=== PATIENT | female | born 1990 | race Caucasian/White ===

== ENCOUNTER 2018-06-28 06:11 | Emergency (ER) | payer SELFPAY ==
[2018-06-28] MEDS ORDERED: KETOROLAC 30 MG/ML INJ ONE (06:58)
--- NOTE | 2018-06-28 07:09 | EDPHYS ---
Physician Documentation [facility] Name: Yazmin Nieto Age: 27 yrs Sex: Female : 1990 Arrival Date: 06/28/2018 Time: 06:12 Bed 16 Private MD: ED Physician Dev Romo HPI: 06/28 06:41 This 27 yrs old Female presents to ER via Ambulatory with complaints of Back jr8 Pain. 06:41 The patient presents with pain that is acute. The symptoms are located in the left mid jr8 back. Onset: The symptoms/episode began/occurred acutely, today. The pain does not radiate. Associated signs and symptoms: The patient has no apparent associated signs or symptoms. The problem was sustained when bending over. Modifying factors: The patient symptoms are alleviated by remaining still, specific position, the patient symptoms are aggravated by any movement, bending, deep breath. Severity of symptoms: At their worst the symptoms were moderate, in the emergency department the symptoms are unchanged. The patient has not experienced similar symptoms in the past. The patient has not recently seen a physician. Stated that she carries a 45 pound back pack for work every day. Stated that she bent over to put her boots on yesterday and felt a pain in the mid back. Since then cannot get the pain to go away. 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 - Social history:: Smoking status: Patient/guardian denies using tobacco. - Ebola Screening: : Patient negative for fever greater than or equal to 101.5 degrees Fahrenheit, and additional compatible Ebola Virus Disease symptoms. ROS: 06:41 Eyes: Negative for injury, pain, redness, and discharge, ENT: Negative for injury, jr8 pain, and discharge, Neck: Negative for injury, pain, and swelling, Cardiovascular: Negative for chest pain, palpitations, and edema, Respiratory: Negative for shortness of breath, cough, wheezing, and pleuritic chest pain, Abdomen/GI: Negative for abdominal pain, nausea, vomiting, diarrhea, and constipation, MS/Extremity: Negative for injury and deformity, Skin: Negative for injury, rash, and discoloration, Neuro: Negative for headache, weakness, numbness, tingling, and seizure. 06:41 Back: Positive for pain at rest, pain with movement, Negative for radiated pain. Exam: 06:41 Eyes: Pupils equal round and reactive to light, extra-ocular motions intact. Lids and jr8 lashes normal. Conjunctiva and sclera are non-icteric and not injected. Cornea within normal limits. Periorbital areas with no swelling, redness, or edema. ENT: Nares patent. No nasal discharge, no septal abnormalities noted. Tympanic membranes are normal and external auditory canals are clear. Oropharynx with no redness, swelling, or masses, exudates, or evidence of obstruction, uvula midline. Mucous membranes moist. Neck: Trachea midline, no thyromegaly or masses palpated, and no cervical lymphadenopathy. Supple, full range of motion without nuchal rigidity, or vertebral point tenderness. No Meningismus. Cardiovascular: Regular rate and rhythm with a normal S1 and S2. No gallops, murmurs, or rubs. Normal PMI, no JVD. No pulse deficits. Respiratory: Lungs have equal breath sounds bilaterally, clear to auscultation and percussion. No rales, rhonchi or wheezes noted. No increased work of breathing, no retractions or nasal flaring. Abdomen/GI: Soft, non-tender, with normal bowel sounds. No distension or tympany. No guarding or rebound. No evidence of tenderness throughout. Skin: Warm, dry with normal turgor. Normal color with no rashes, no lesions, and no evidence of cellulitis. MS/ Extremity: Pulses equal, no cyanosis. Neurovascular intact. Full, normal range of motion. Neuro: Awake and alert, GCS 15, oriented to person, place, time, and situation. Cranial nerves II-XII grossly intact. Motor strength 5/5 in all extremities. Sensory grossly intact. Cerebellar exam normal. Normal gait. 06:41 Back: pain, that is mild, of the left mid back, ROM is painful, normal spinal alignment noted, CVA tenderness, is absent. Vital Signs: 06:23 BP 121 / 76; Pulse 88; Resp 18 S; Temp 98.6(O); Pulse Ox 98% on R/A; Weight 122.47 kg jd3 (R); Height 6 ft. 1 in. (185.42 cm) (R); Pain 10/10; 07:12 Pain 3/10; ls4 06:23 Body Mass Index 35.62 (122.47 kg, 185.42 cm) jd3 MDM: 06:14 Patient medically screened. jr8 06:41 Data reviewed: vital signs, nurses notes, lab test result(s), and as a result, I will jr8 discharge patient. Data interpreted: Pulse oximetry: on room air is 98 %. Interpretation: normal. Counseling: I had a detailed discussion with the patient and/or guardian regarding: the historical points, exam findings, and any diagnostic results supporting the discharge/admit diagnosis, lab results, the need for outpatient follow up, a family practitioner, to return to the emergency department if symptoms worsen or persist or if there are any questions or concerns that arise at home. ED course: Discussed with patient that she should have no heavy lifting for 1 week. Rest, heat, and will give medicine to relax the muscles. To follow up with PCP. Patient good with this plan . 06/28 06:50 Order name: Urine Dipstick--Ancillary (enter results) ar5 06/28 06:41 Order name: Urine Test (obtain specimen); Complete Time: 06:56 jr8 06/28 06:41 Order name: Urine Dipstick-Ancillary (obtain specimen); Complete Time: 06:57 jr8 Administered Medications: 06:57 Drug: TORadol 60 mg Route: IM; Site: right gluteus; jb4 07:12 Follow up: Pain 3/10 Adult; Response: No adverse reaction; Pain is decreased ls4 Disposition: 15:27 Co-signature as Attending Physician, Dev Romo MD I agree with the assessment and moody plan of care. Disposition: 06/28/18 07:08 Discharged to Home. Impression: Muscle spasm of back. - Condition is Stable. - Discharge Instructions: Muscle Cramps and Spasms, Back Exercises, Cmbm-of-Uhbk, Heat Therapy. - Prescriptions for tizanidine 4 mg Oral tablet - take 1 tablet by ORAL route every 6 hours as needed not to exceed 3 doses in 24 hours; 20 tablet. Ibuprofen 800 mg Oral Tablet - take 1 tablet by ORAL route every 12 hours As needed take with food; 20 tablet. - Work release form, Medication Reconciliation Form, Thank You Letter, Antibiotic Education, Prescription Opioid Use form. - Follow up: Private Physician; When: 1 week; Reason: Recheck today's complaints, Continuance of care, Re-evaluation by your physician. - Problem is new. - Symptoms have improved. 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 Impression: Muscle spasm of back. Condition ls4 is Stable. Discharge Instructions: Muscle Cramps and Spasms, Back Exercises, [id number], Heat Therapy. Prescriptions for tizanidine 4 mg Oral tablet - take 1 tablet by ORAL route every 6 hours as needed not to exceed 3 doses in 24 hours; 20 tablet, Ibuprofen 800 mg Oral Tablet - take 1 tablet by ORAL route every 12 hours As needed take with food; 20 tablet. and Forms are Medication Reconciliation Form, Thank You Letter, Antibiotic Education, Prescription Opioid Use. Follow up: Private Physician; When: 1 week; Reason: Recheck today's complaints, Continuance of care, Re-evaluation by your physician. Problem is new. Symptoms have improved. jr8
--- NOTE | 2018-06-28 07:09 | ER ---
Nurse's Notes [facility] Name: Yazmin Nieto Age: 27 yrs Sex: Female : 1990 Arrival Date: 06/28/2018 Time: 06:12 Bed 16 Private MD: Diagnosis: Muscle spasm of back Presentation: 06/28 06:19 Presenting complaint: Patient states: "I am having lower back pain that started jd3 yesterday. it hurts to breath or even move.". Transition of care: patient was not received from another setting of care. Onset of symptoms was June 27, 2018. Risk Assessment: Do you want to hurt yourself or someone else? Patient reports no desire to harm self or others. Initial Sepsis Screen: Does the patient meet any 2 criteria? No. Patient's initial sepsis screen is negative. Does the patient have a suspected source of infection? No. Patient's initial sepsis screen is negative. Care prior to arrival: None. 06:19 Method Of Arrival: Ambulatory jd3 06:19 Acuity: NATALIIA 3 jd3 Triage Assessment: 06:24 Pain: Complains of pain in low back area Pain does not radiate. Pain currently is 10 jd3 out of 10 on a pain scale. Quality of pain is described as sharp, Pain began 1 day ago. Is continuous, Aggravated by increased activity. 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 - Social history:: Smoking status: Patient/guardian denies using tobacco. - Ebola Screening: : Patient negative for fever greater than or equal to 101.5 degrees Fahrenheit, and additional compatible Ebola Virus Disease symptoms. Screenin:24 Abuse screen: Denies threats or abuse. Nutritional screening: No deficits noted. jd3 Tuberculosis screening: No symptoms or risk factors identified. Fall Risk Ambulatory Aid- None/Bed Rest/Nurse Assist (0 pts). Gait- Normal/Bed Rest/Wheelchair (0 pts) Mental Status- Oriented to own ability (0 pts). Total Ricks Fall Scale indicates No Risk (0-24 pts). Assessment: 06:30 General: Appears in no apparent distress. comfortable, Behavior is calm, cooperative, jb4 appropriate for age. Pain: Complains of pain in low back area Pain does not radiate. Pain currently is 10 out of 10 on a pain scale. Quality of pain is described as sharp, stabbing, Pain began 1 day ago. Is continuous. Neuro: Level of Consciousness is awake, alert, obeys commands, Oriented to person, place, time, situation. Cardiovascular: Patient's skin is warm and dry. Respiratory: Airway is patent Respiratory effort is even, unlabored, Respiratory pattern is regular, symmetrical. GI: No signs and/or symptoms were reported involving the gastrointestinal system. : No signs and/or symptoms were reported regarding the genitourinary system. EENT: No signs and/or symptoms were reported regarding the EENT system. Derm: Skin is intact, Skin is pink, warm \\T\\ dry. Musculoskeletal: Circulation, motion, and sensation intact. Reports pain in low back area Denies numbness or weakness. Vital Signs: 06:23 BP 121 / 76; Pulse 88; Resp 18 S; Temp 98.6(O); Pulse Ox 98% on R/A; Weight 122.47 kg jd3 (R); Height 6 ft. 1 in. (185.42 cm) (R); Pain 10/10; 07:12 Pain 3/10; ls4 06:23 Body Mass Index 35.62 (122.47 kg, 185.42 cm) jd3 ED Course: 06:12 Patient arrived in ED. ds1 06:14 Robbin Mccarty PA is PHCP. jr8 06:14 Dev Romo MD is Attending Physician. jr8 06:21 Triage completed. jd3 06:24 Arm band placed on. jd3 06:24 Patient has correct armband on for positive identification. Bed in low position. Call [facility] light in reach. Side rails up X 1. 06:28 Jose Miguel Rock, LINNTETE is Primary Nurse. jb4 07:23 No provider procedures requiring assistance completed. ls4 07:25 Patient did not have IV access during this emergency room visit. ls4 Administered Medications: 06:57 Drug: TORadol 60 mg Route: IM; Site: right gluteus; jb4 07:12 Follow up: Pain 3/10 Adult; Response: No adverse reaction; Pain is decreased ls4 Outcome: 07:08 Discharge ordered by . kaley 07:24 Discharged to home ambulatory. ls4 07:24 Condition: stable 07:24 Discharge instructions given to patient, Instructed on discharge instructions, follow up and referral plans. no drinking with medication, no driving heavy equipment, medication usage, safety practices, Demonstrated understanding of instructions, follow-up care, medications, Prescriptions given X 2. 07:25 Patient left the ED. ls4 Signatures: Alysia Ty1 Robbin Mccarty PA PA jr8 Jose Miguel Rock RN RN jb4 Korey Coronado RN RN jd3 Jazzy Oliveira RN RN ls4
[2018-06-28 07:37] LABS: Urine Blood 2+ (NEG); Urine Glucose NEGATIVE (NEG); Urine Protein NEGATIVE (NEG)
== END 2018-06-28 07:25 | disposition home or self-care (01) ==
LOC: ER 06:11
DX: M62.830 Muscle spasm of back (principal); Z88.1 Allergy status to other antibiotic agents
CPT/HCPCS: 81003; 96372; 99283